=== PATIENT | female | born 1955 | race Caucasian/White ===

== ENCOUNTER → 2016-06-24 | Outpatient (CLI) | payer MEDICARE, OTHER ==
--- NOTE | 2016-06-25 11:10 | ECHOF ---
Referral Reason:Pulmonary HTN I27.89 MEASUREMENTS -------- HEIGHT: 165.1 cm WEIGHT: 80.7 kg BP: 108/78 RVIDd: 3.0 cm (< 3.3) IVSd: 1.0 cm (0.6 - 1.1) LVIDd: 3.8 cm (3.9 - 5.3) LVPWd: 0.8 cm (0.6 - 1.1) IVSs: 1.3 cm LVIDs: 2.5 cm LVPWs: 1.4 cm LA Diam: 2.6 cm (2.7 - 3.8) LAESV Index (A-L): 13.04 ml/m Ao Diam: 3.0 cm (2.0 - 3.7) AV Cusp: 1.8 cm (1.5 - 2.6) LA Diam: 2.7 cm (2.7 - 3.8) MV EXCURSION: 12.451 mm (> 18.000) MV EF SLOPE: 24 mm/s (70 - 150) EPSS: 0.5 cm MV E Brent: 0.42 m/s MV DecT: 265 ms MV A Brent: 0.58 m/s MV E/A Ratio: 0.71 AR PHT: 3143 ms RAP: 5.00 mmHg RVSP: 22.82 mmHg FINDINGS -------- Sinus rhythm with extra systolic beats. This was a technically good study. The left ventricular size is normal. Left ventricular wall thickness is normal. Overall left ventricular systolic function is normal with, an EF between 55 - 60 %. The right ventricle is normal in size. Normal LA size by volume 22+/-6 ml/m2. The right atrium is normal in size. Aortic valve is trileaflet and is mildly thickened. There is moderate aortic regurgitation. The mitral valve leaflets are mildly thickened. There is trace to mild mitral regurgitation. Trace tricuspid regurgitation present. Trace/mild (physiologic) pulmonic regurgitation. The aortic root size is normal. IVC Not well visulized. There is no pericardial effusion. CONCLUSIONS -------- 1. Sinus rhythm with extra systolic beats. 2. The aortic root size is normal. 3. IVC Not well visulized. 4. There is no pericardial effusion. 5. This was a technically good study. 6. Left ventricular wall thickness is normal. 7. Overall left ventricular systolic function is normal with, an EF between 55 - 60 %. 8. Normal LA size by volume 22+/-6 ml/m2. 9. Aortic valve is trileaflet and is mildly thickened. 10. The mitral valve leaflets are mildly thickened. 11. Trace tricuspid regurgitation present. 12. Trace/mild (physiologic) pulmonic regurgitation. QUALITY ASSURANCE LAB TECHNICIAN: Kiera Rodriguez RDCS
== END | disposition home or self-care (01) ==
LOC: RADECHMAIN 14:38
PROVIDERS: ATTEND Internal Medicine Pulmonary Disease
DX: I08.3 Combined rheumatic disorders of mitral, aortic and tricuspid valves (principal)
CPT/HCPCS: 93306

== ENCOUNTER → 2016-08-09 | Outpatient (CLI) | payer MEDICARE, OTHER ==
[2016-08-09 11:13] LABS: Basophils % (A) 1 %; CH 28.6; CHCM 31.9; Eosinophils # (A) 0.2 k/uL (0-0.7); Eosinophils % (A) 6 %; HCT 38.9 % (34.0-46.0); HDW 3.06; HGB 12.5 gm/dL (11.4-16.0); Hypochromasia Slight; Luc # (Auto) 0.17; Luc % (Auto) 5; Lymphocytes # (A) 1.2 k/uL (1.0-4.8); Lymphocytes % (A) 30 %; MCH 28.8 pg (25.0-35.0); MCHC 32.1 g/dL (31.0-37.0); Mean Platelet Volume 6.7; Monocytes # (A) 0.2 k/uL (0-1.0); Monocytes % (A) 5 %; Neutrophils # (A) 2.1 k/uL (1.3-7.7); Neutrophils % (A) 53 %; RBC 4.32 m/uL (3.80-5.40); RDW 15.3 % (11.5-15.5); WBC 3.9 k/uL (3.8-10.6)
[2016-08-09 11:15] LABS: Potassium 4.6 mmol/L (3.5-5.1)
[2016-08-09 11:16] LABS: Partial Thromboplastin Time 23.8 sec (22.0-30.0); Prothrombin Time 10.6 sec (9.0-12.0)
== END | disposition home or self-care (01) ==
LOC: LABPAT 10:23
PROVIDERS: ATTEND Orthopaedic Surgery
DX: Z01.810 Encounter for preprocedural cardiovascular examination (principal); Z01.812 Encounter for preprocedural laboratory examination; M23.91 Unspecified internal derangement of right knee
CPT/HCPCS: 80051; 85025; 85610; 85730

== ENCOUNTER 2016-08-20 08:36 | Day surgery (SDC) | payer MEDICARE, OTHER ==
[2016-08-13 15:23] VITALS: BMI 30.3
--- NOTE | 2016-08-19 11:31 | HP ---
DATE OF ADMISSION: CHIEF COMPLAINT: Right knee pain. HISTORY OF PRESENT ILLNESS: The patient is a 60-year-old female on permanent disability who presents after injuring her right knee on 08/07/2016. She fell on both knees in the hallway in front of her apartment building. She notes anterior medial pain along with giving way. She has tried injections and medications with only partial temporary relief. She had a previous arthroscopy in November of last year. PAST MEDICAL HISTORY: Significant for rheumatoid arthritis, depression, chronic low back pain. PAST SURGICAL HISTORY: Significant for tubal ligation, left and right knee arthroscopy, rotator cuff repair and tonsillectomy. CURRENT MEDICATIONS: 1. Lyrica. 2. Diazepam. 3. Methotrexate. 4. Procardia. 5. Percocet. 6. Cimzia. She has allergies to PENICILLIN with sensitivity to TYLENOL. FAMILY HISTORY: Significant for COPD. SOCIAL HISTORY: Negative for current tobacco or alcohol use. Sixteen-point review of systems otherwise reviewed and is noncontributory. On examination, the patient is approximately 5 feet 4 inches, 178 pounds of endomorphic habitus. HEENT exam is nonfocal. Neck is supple. She has painless passive motion of her right hip. Straight leg raise is negative. Active motion of the right knee -12 to 70 degrees of flexion. She has a moderate effusion. She is tender about the medial greater than lateral joint line along with the medial patellar facet. Collaterals are stable, Ele's negative, Montserrat's elicits medial pain. Her distal neurovascular exam appears to be intact in the right lower extremity. X-rays of the right knee obtained in the office show moderate medial and patellofemoral compartment narrowing. MRI report from 07/05/2016 shows medial meniscal fraying along with degenerative changes involving all 3 compartments. IMPRESSION: 1. Right knee internal derangement with possible recurrent medial meniscal tear. 2. Right knee rheumatoid arthritis/synovitis. RECOMMENDATIONS: I talked to the patient at length regarding her treatment options. At this point, she is having persistent pain and mechanical symptoms that limit her. At this point, she does not want to consider knee replacement. We will plan to proceed with arthroscopic evaluation with possible partial synovectomy and medial femoral chondrectomy. Risks and benefits were discussed at length in layman's terms.
[~2016-08-20 08:36] MED LIST: DEXAMETHASONE SOD PHOSPHATE 10 MG/ML 1 ML VIAL IV ONE; LACTATED RINGERS 1,000 ML IV SCH; MIDAZOLAM 2 MG/2 ML VIAL IV PRN; ONDANSETRON 4 MG/2 ML VIAL IVP ONE; SCOPOLAMINE 1.5MG/72HR PATCH TRANSDERM ONE; ceFAZolin 2 GM in SODIUM CHLORIDE 0.9% 100 ML IVPB ONE
[2016-08-20] MEDS ORDERED: LIDOCAINE 1% 20 ML VIAL (10MG/ML) FOR IV START INTRADERMA ONE (09:18)
[2016-08-20] MEDS ORDERED: LIDOCAINE 1% INJ 10MG/ML (20 ML MDV) ONE (10:15)
[2016-08-20] MEDS ORDERED: MIDAZOLAM 2 MG/2 ML VIAL ONE (10:15)
[2016-08-20] MEDS ORDERED: PROPOFOL 10 MG/ML 20 ML VIAL IV ONE (10:15)
[2016-08-20] MEDS ORDERED: fentaNYL (PF) 50 MCG/ML 2 ML AMP ONE (10:15)
--- NOTE | 2016-08-20 11:00 | P.OP ---
Date of Procedure: 08/20/16 Preoperative Diagnosis: Internal derangement right knee Postoperative Diagnosis: Right knee posterior medial meniscal tear/grade 3 chondral injury lateral tibial plateau/grade 3/4 chondral injury lateral patella facet/reactive synovitis Procedure(s) Performed: Right knee arthroscopic partial meniscectomy/medial femoral chondrectomy/ tibial chondrectomy/patellar chondroplasty/partial synovectomy of the lateral and patellofemoral compartments Implants: Anesthesia: GETA Surgeon: Jesus Ron Estimated Blood Loss (ml): 10 Pathology: none sent Condition: stable Disposition: PACU Indications for Procedure: The patient's a 60-year-old female who presents with progressive right knee pain and mechanical symptoms after a recent twisting injury. She tried conservative measures with persistence of symptoms that limited her. A discussion of the risks and benefits of operative intervention versus continued conservative measures was made with the patient. Operative options to include arthroscopic treatment versus arthroplasty were discussed. She is hesitant to consider arthroplasty at this point. Specific risks to include infection, neurovascular injury, development of blood clots, possible incomplete resolution of symptoms, possible worsening symptoms and need for subsequent procedures was discussed. Informed consent was obtained. Operative Findings: As below Description of Procedure: The patient was brought to the operating room, and after induction of general anesthesia examined the right knee. Collaterals were stable, Ele was negative, posterior drawer was negative. The right lower extending was prepped and draped in normal fashion. A superior lateral portal was made through a 3 mm skin incision superior and lateral to the patella. This was used for outflow. A moderate effusion was encountered. A lateral portal was made through a 5 mm vertical skin incision lateral to the patella tendon above the joint line. Diagnostic arthroscopy was performed. A medial portal was made through a similar incision medial to the patella tendon above the joint line. On inspection medial compartment, she is noted of longitudinal tear involving the posterior aspect the medial meniscus. This was debrided back to stable base with straight baskets. The edges were contoured. Moderate degenerative changes involving medial compartment were noted. A grade 3 chondral injury involving the distal medial portion of the medial femoral condyle was noted. There was a loose chondral flap debrided back to stable wrist motorized shaver. On inspection of the notch, the anterior cruciate ligament appeared to be intact. On inspection of the lateral compartment a grade 3 chondral injury involving the anterior medial portion of the tibial plateau was noted. A loose chondral flap was noted and debrided back to stable base with a motorized shaver. The lateral meniscus was stable and intact. Reactive synovitis involving the lateral and patellofemoral compartment was debrided with motorized shaver. On inspection patellofemoral articulation, a grade 3/4 chondral injury was noted involving the lateral patella facet. This measured 8 x 10 mm. The loose chondral flap edges were debrided with motorized shaver back to stable base. The gutters were clear debris. The knee was then thoroughly irrigated. The portals were closed with Steri-Strips. A sterile dressing was applied in addition to a compression stocking. The patient was awoken from general anesthesia and transferred to recovery room in good condition. Blood loss was estimated at 10 mL. No complications were incurred.
[2016-08-20 11:01] VITALS: TEMP 97.3
[2016-08-20] MEDS: HYDROmorphone 1 MG/ML 1 ML SYRINGE IVP PRN ×2 (11:08→11:15)
[2016-08-20 12:09] VITALS: RESP 16
[2016-08-20 12:33] VITALS: BP 112/70; PULSE 58
== END 2016-08-20 12:55 | disposition home or self-care (01) ==
LOC: OR 08:36
PROVIDERS: ATTEND Orthopaedic Surgery
DX: S83.241A Other tear of medial meniscus, current injury, right knee, initial encounter (principal); W19.XXXA Unspecified fall, initial encounter; Y92.038 Other place in apartment as the place of occurrence of the external cause; M65.861 Other synovitis and tenosynovitis, right lower leg; M23.91 Unspecified internal derangement of right knee; M06.9 Rheumatoid arthritis, unspecified; M25.461 Effusion, right knee; M17.11 Unilateral primary osteoarthritis, right knee; F32.9 Major depressive disorder, single episode, unspecified; I10 Essential (primary) hypertension; M79.7 Fibromyalgia; R94.31 Abnormal electrocardiogram [ECG] [EKG]; Z79.891 Long term (current) use of opiate analgesic; Z79.899 Other long term (current) drug therapy; Z88.0 Allergy status to penicillin
CPT/HCPCS: 29881; J2250; J1100; J0690; J2405; J2001; J3010; J1170; J2704

== ENCOUNTER 2016-12-25 10:20 | Inpatient (IN) | payer MEDICARE, OTHER ==
[2016-12-25] MEDS ORDERED: HEPARIN SODIUM,PORCINE 5,000 UNIT/ML 1 ML VIAL IV PRN (15:48)
[2016-12-25] MEDS ORDERED: HEPARIN SODIUM,PORCINE/D5W PMX 25,000 UNIT in DEXTROSE/WATER 1 500ML.BAG IV SCH (16:00)
[2016-12-25] MEDS: SODIUM CHLORIDE 0.9% 1,000 ML IV SCH (17:11)
[2016-12-25 17:23] LABS: Troponin I 1.34 ng/mL (0.000-0.034)
[2016-12-25] MEDS: NIFEdipine XL 30 MG TAB.ER.24 PO SCH (20:15)
[2016-12-25] MEDS: PREGABALIN 100 MG CAP PO SCH (20:15)
[2016-12-25] MEDS: ZOLPIDEM 10 MG TAB PO PRN (21:07)
[2016-12-25 22:36] LABS: Creatine Kinase MB 4.2 ng/mL (0.0-2.4)
[2016-12-25 22:37] LABS: Troponin I 1.2 ng/mL (0.000-0.034)
[2016-12-26] MEDS: MORPHINE SULFATE 2 MG/ML SYRINGE IVP PRN ×2 (00:19→07:55)
[2016-12-26] MEDS: SODIUM CHLORIDE 0.9% 1,000 ML IV SCH ×2 (00:20→15:29)
[2016-12-26 04:55] LABS: Basophils # (A) 0.1 k/uL (0-0.2); Basophils % (A) 1 %; CH 29.9; CHCM 32.2; Eosinophils # (A) 0.1 k/uL (0-0.7); Eosinophils % (A) 2 %; HCT 39.4 % (34.0-46.0); HDW 2.77; HGB 12.3 gm/dL (11.4-16.0); Luc # (Auto) 0.15; Luc % (Auto) 3; Lymphocytes % (A) 35 %; MCHC 31.2 g/dL (31.0-37.0); MCV 93.2 fL (80.0-100.0); Mean Platelet Volume 7.3; Monocytes # (A) 0.3 k/uL (0-1.0); Monocytes % (A) 5 %; Neutrophils # (A) 3.1 k/uL (1.3-7.7); Neutrophils % (A) 55 %; RBC 4.23 m/uL (3.80-5.40); RDW 15.5 % (11.5-15.5); WBC 5.7 k/uL (3.8-10.6); WBC (Perox) 5.96
[2016-12-26 05:11] LABS: Anion Gap 7 mmol/L; Blood Urea Nitrogen 12 mg/dL (7-17); Calcium 8.2 mg/dL (8.4-10.2); Carbon Dioxide 17 mmol/L (22-30); Chloride 115 mmol/L (98-107); Glucose 89 mg/dL (74-99); Non-African American GFR(MDRD) >60 (>60 ml/min/1.73 sqM); Potassium 3.7 mmol/L (3.5-5.1); Sodium 139 mmol/L (137-145)
[2016-12-26 05:49] LABS: Creatine Kinase MB 3.9 ng/mL (0.0-2.4)
[2016-12-26 05:50] LABS: Troponin I 0.83 ng/mL (0.000-0.034)
[2016-12-26] MEDS: NIFEdipine XL 30 MG TAB.ER.24 PO SCH (06:51)
[2016-12-26] MEDS: CLOPIDOGREL 75 MG TAB PO SCH (06:51)
[2016-12-26] MEDS: PREGABALIN 100 MG CAP PO SCH ×2 (06:56→21:48)
[2016-12-26] MEDS ORDERED: HYDROmorphone 1 MG/ML 1 ML SYRINGE IM PRN (07:51)
[2016-12-26] MEDS ORDERED: ALPRAZolam 0.25 MG TAB PO PRN (07:51)
[2016-12-26] MEDS ORDERED: LIDOCAINE 2% INJ 20 MG/ML (20 ML MDV) ONE (08:50)
[2016-12-26] MEDS ORDERED: ASPIRIN 325 MG TAB PO ONE (09:00)
[2016-12-26] MEDS ORDERED: diphenhydrAMINE 50 MG/ML 1 ML VIAL ONE (09:07)
[2016-12-26] MEDS ORDERED: MIDAZOLAM 2 MG/2 ML VIAL ONE (09:07)
[2016-12-26] MEDS ORDERED: MIDAZOLAM 2 MG/2 ML VIAL IV ONE (09:11)
[2016-12-26] MEDS ORDERED: IV FLUID CONTINUATION 450 ML IV ONE (09:11)
[2016-12-26] MEDS ORDERED: diphenhydrAMINE 50 MG/ML 1 ML VIAL IVP ONE (09:13)
[2016-12-26] MEDS ORDERED: LIDOCAINE 2% INJ 20 MG/ML SQ ONE (09:16)
[2016-12-26] MEDS ORDERED: IOHEXOL 350 MG/ML 125ML BOTTLE INJ ONE (09:37)
[2016-12-26] MEDS ORDERED: ISOSORBIDE MONONITRATE ER 30 MG TAB.ER.24H PO SCH (10:00)
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
[2016-12-26] MEDS: LISINOPRIL 2.5 MG TAB PO SCH (15:19)
[2016-12-26] MEDS ORDERED: ACETAMINOPHEN TAB 325 MG TAB PO PRN (17:46)
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
[2016-12-26] MEDS: ATORVASTATIN 20 MG TAB PO SCH (21:48)
[2016-12-26] MEDS: METOPROLOL TARTRATE 25 MG TAB PO SCH (21:48)
[2016-12-27 06:53] LABS: Basophils % (A) 1 %; CH 29.1; CHCM 31.4; Eosinophils # (A) 0.1 k/uL (0-0.7); Eosinophils % (A) 2 %; HCT 38.7 % (34.0-46.0); HDW 2.83; HGB 12.2 gm/dL (11.4-16.0); Hypochromasia Slight; Luc # (Auto) 0.14; Luc % (Auto) 3; Lymphocytes # (A) 1.7 k/uL (1.0-4.8); Lymphocytes % (A) 32 %; MCH 29.5 pg (25.0-35.0); MCHC 31.7 g/dL (31.0-37.0); MCV 93.1 fL (80.0-100.0); Mean Platelet Volume 6.7; Monocytes # (A) 0.2 k/uL (0-1.0); Monocytes % (A) 5 %; Neutrophils # (A) 3.1 k/uL (1.3-7.7); Neutrophils % (A) 59 %; RBC 4.15 m/uL (3.80-5.40); WBC 5.2 k/uL (3.8-10.6); WBC (Perox) 5.47
[2016-12-27 09:53] LABS: Anion Gap 6 mmol/L; Blood Urea Nitrogen 9 mg/dL (7-17); Calcium 8.6 mg/dL (8.4-10.2); Carbon Dioxide 23 mmol/L (22-30); Chloride 113 mmol/L (98-107); Glucose 74 mg/dL (74-99); Non-African American GFR(MDRD) >60 (>60 ml/min/1.73 sqM); Sodium 142 mmol/L (137-145)
[2016-12-27] MEDS: PREGABALIN 100 MG CAP PO SCH ×2 (10:21→20:05)
[2016-12-27] MEDS: CLOPIDOGREL 75 MG TAB PO SCH (10:21)
[2016-12-27] MEDS: METOPROLOL TARTRATE 25 MG TAB PO SCH (11:28)
[2016-12-27] MEDS: LISINOPRIL 2.5 MG TAB PO SCH (11:45)
[2016-12-27] MEDS: METOPROLOL TARTRATE 12.5 MG TAB PO SCH ×2 (12:07→20:05)
--- NOTE | 2016-12-27 13:06 | P.PN ---
Subjective Principal diagnosis: NSTEMI This is a pleasant 61-year-old female who presented presented to [facility] emergency department with complaints of chest discomfort. Her troponins came in to be elevated at around 5. She underwent an echocardiogram that showed extensive apical hypokinesis with moderate LV systolic dysfunction. He was advised to undergo cardiac catheterization and was transferred here to [facility] for that. Cardiac catheterization showed plaque rupture with spontaneous dissection within the proximal LAD that seemed to have healed well with very good distal flow at that time she was advised medical management. He was initiated on lisinopril 2.5 mg by mouth daily, metoprolol titrate 25 mg by mouth twice a day and Imdur. Her blood pressure has been running on the low side which is normal for her according to the patient. Upon examination, patient is resting comfortably in bed. She denies complaints of chest discomfort or shortness of breath. Objective - Vital Signs Vital signs: Vital Signs Temp 96.3 F L 12/27/16 11:58 Pulse 68 12/27/16 11:58 Resp 18 12/27/16 11:58 BP 94/53 12/27/16 11:58 Pulse Ox 99 12/27/16 11:58 Intake & Output 12/26/16 12/27/16 12/27/16 18:59 06:59 18:59 Intake Total 1385.2 375 840 Balance 1385.2 375 840 Weight 80.5 kg Intake: IV 50 375 600 Sodium Chloride 0.9% 1, 375 600 000 ml @ 75 mls/hr IV . [id number] [facility] Rx#:[id number] Intake, IV Titration 1135.2 Amount Heparin Sodium,Porcine/ 235.2 D5w Pmx 25,000 unit In Dextrose/Water 1 500ml. bag @ 12 UNITS/KG/HR 19. 65 mls/hr IV .Q24H [facility] Rx #:[id number] Sodium Chloride 0.9% 1, 900 000 ml @ 75 mls/hr IV . [id number] [facility] Rx#:[id number] Oral 200 240 Other: Voiding Method Toilet # Voids 1 1 - Exam PHYSICAL EXAMINATION: HEENT: Head is atraumatic, normocephalic. Pupils equal, round. Neck is supple. There is no elevated jugular venous pressure. HEART EXAMINATION: Heart sounds regular, S1 and S2 normal. No murmur or gallop heard. CHEST EXAMINATION: Lungs are clear to auscultation and precussion. No chest wall tenderness is noted on palpation or with deep breathing. ABDOMEN: Soft, nontender. Bowel sounds are heard. No organomegaly noted. EXTREMITIES: 2+ peripheral pulses with no evidence of peripheral edema and no calf tenderness noted. Right groin puncture site soft without ecchymosis or hematoma. NEUROLOGIC patient is awake, alert and oriented x3. . - Labs CBC & Chem 7: 12/27/16 05:45 12/27/16 05:45 Labs: Abnormal Lab Results - Last 24 Hours (Table) 12/27/16 Range/Units 05:45 Chloride 113 H (98-107) mmol/L Assessment and Plan Plan: Assessment and plan #1 non-ST elevated myocardial infarction with evidence of plaque rupture and spontaneous dissection within the proximal LAD that seemed well-healed #2 rheumatoid arthritis #3 fibromyalgia From cardiology's perspective, we will adjust medications due to hypotension. Stop Procardia and Imdur, decrease metoprolol to 12.5 mg by mouth twice a day and continue lisinopril 2.5 mg by mouth daily. We'll monitor the patient overnight and provide further recommendations accordingly. SPANISH LITERATURE PROFESSOR note has been reviewed, I agree with a documented findings and plan of care. Patient was seen and examined.
[2016-12-27 14:52] VITALS: BMI 30.4
[2016-12-27] MEDS: SODIUM CHLORIDE 0.9% 1,000 ML IV SCH ×2 (20:00→21:20)
[2016-12-27] MEDS: ATORVASTATIN 20 MG TAB PO SCH (20:05)
[2016-12-27] MEDS: ZOLPIDEM 10 MG TAB PO PRN (21:23)
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
[2016-12-28 05:55] LABS: Anisocytosis Slight; Basophils % (A) 1 %; CH 29.8; CHCM 32.6; Eosinophils # (A) 0.1 k/uL (0-0.7); Eosinophils % (A) 2 %; HDW 2.84; HGB 12.4 gm/dL (11.4-16.0); Luc # (Auto) 0.13; Luc % (Auto) 3; Lymphocytes # (A) 1.4 k/uL (1.0-4.8); Lymphocytes % (A) 31 %; MCHC 32.6 g/dL (31.0-37.0); Mean Platelet Volume 7.8; Monocytes # (A) 0.3 k/uL (0-1.0); Monocytes % (A) 6 %; Neutrophils # (A) 2.6 k/uL (1.3-7.7); Neutrophils % (A) 57 %; RBC 4.13 m/uL (3.80-5.40); RDW 16.2 % (11.5-15.5); WBC 4.5 k/uL (3.8-10.6); WBC (Perox) 4.79
[2016-12-28] MEDS: CLOPIDOGREL 75 MG TAB PO SCH (08:17)
[2016-12-28] MEDS: METOPROLOL TARTRATE 12.5 MG TAB PO SCH (08:17)
[2016-12-28] MEDS: PREGABALIN 100 MG CAP PO SCH (08:17)
[2016-12-28] MEDS: LISINOPRIL 2.5 MG TAB PO SCH (08:17)
[2016-12-28 11:18] VITALS: BP 102/61; PULSE 57; RESP 18; TEMP 97
--- NOTE | 2016-12-28 13:12 | P.PN ---
Subjective Principal diagnosis: NSTEMI This is a pleasant 61-year-old female who presented presented to [facility] emergency department with complaints of chest discomfort. Her troponins came in to be elevated at around 5. She underwent an echocardiogram that showed extensive apical hypokinesis with moderate LV systolic dysfunction. He was advised to undergo cardiac catheterization and was transferred here to [facility] for that. Cardiac catheterization showed plaque rupture with spontaneous dissection within the proximal LAD that seemed to have healed well with very good distal flow at that time she was advised medical management. She is on lisinopril 2.5 mg by mouth daily and metoprolol 12.5 mg by mouth twice a day. She is tolerating this well.. Her blood pressure has been running on the low side but is stable and is normal for her according to the patient. Upon examination, patient is resting comfortably in bed. She denies complaints of chest discomfort or shortness of breath. Objective - Vital Signs Vital signs: Vital Signs Temp 97.0 F L 12/28/16 11:17 Pulse 57 L 12/28/16 11:17 Resp 18 12/28/16 11:17 BP 102/61 12/28/16 11:17 Pulse Ox 97 12/28/16 11:17 Intake & Output 12/27/16 12/28/16 12/28/16 18:59 06:59 18:59 Intake Total 1080 360 Balance 1080 360 Weight 80.5 kg 79.6 kg Intake: IV 600 Sodium Chloride 0.9% 1, 600 000 ml @ 75 mls/hr IV . [id number] [facility] Rx#:[id number] Oral 480 360 Other: Voiding Method Toilet # Voids 1 1 1 # Bowel Movements 0 - Exam PHYSICAL EXAMINATION: HEENT: Head is atraumatic, normocephalic. Pupils equal, round. Neck is supple. There is no elevated jugular venous pressure. HEART EXAMINATION: Heart sounds regular, S1 and S2 normal. No murmur or gallop heard. CHEST EXAMINATION: Lungs are clear to auscultation and precussion. No chest wall tenderness is noted on palpation or with deep breathing. ABDOMEN: Soft, nontender. Bowel sounds are heard. No organomegaly noted. EXTREMITIES: 2+ peripheral pulses with no evidence of peripheral edema and no calf tenderness noted. Right groin puncture site soft without ecchymosis or hematoma. NEUROLOGIC patient is awake, alert and oriented x3. . - Labs CBC & Chem 7: 12/28/16 05:44 12/27/16 05:45 Labs: Abnormal Lab Results - Last 24 Hours (Table) 12/28/16 Range/Units 05:44 RDW 16.2 H (11.5-15.5) % Assessment and Plan Plan: Assessment and plan #1 non-ST elevated myocardial infarction with evidence of plaque rupture and spontaneous dissection within the proximal LAD that seemed well-healed #2 rheumatoid arthritis #3 fibromyalgia From cardiology's perspective, continue lisinopril and metoprolol. She will follow-up in the office with Dr. Suarez. Likely be scheduled for repeat echocardiogram to reassess LV function in about 3 months. DEPARTMENT CLERK note has been reviewed, I agree with a documented findings and plan of care. Patient was seen and examined.
--- NOTE | 2016-12-28 13:45 | P.PN ---
Subjective No overnight events, patient denied any chest pain at this point of time. Patient is otherwise clinically doing well. Patient ejection fraction from [facility] was apparently 20-25% was initially thought to have stress- induced cardiomyopathy although patient does have some wretched of plaque in LAD which is probably contributing to her echo findings of apical ballooning probably. Patient was started on lisinopril and cardiology wanted to monitor the patient. Calcium channel lorraine was discontinued. Patient denied any chest pain, shortness of breath, denied any fever, chills, dysuria. Objective - Vital Signs Vital signs: Vital Signs Temp 97.0 F L 12/28/16 11:17 Pulse 57 L 12/28/16 11:17 Resp 18 12/28/16 11:17 BP 102/61 12/28/16 11:17 Pulse Ox 97 12/28/16 11:17 Intake & Output 12/27/16 12/28/16 12/28/16 18:59 06:59 18:59 Intake Total 1080 360 Balance 1080 360 Weight 80.5 kg 79.6 kg Intake: IV 600 Sodium Chloride 0.9% 1, 600 000 ml @ 75 mls/hr IV . [id number] [facility] Rx#:[id number] Oral 480 360 Other: Voiding Method Toilet # Voids 1 1 1 # Bowel Movements 0 - Exam PHYSICAL EXAMINATION: GENERAL: The patient is alert and oriented x3, not in any acute distress. Well developed, well nourished. HEENT: Pupils are round and equally reacting to light. EOMI. No scleral icterus. No conjunctival pallor. Normocephalic, atraumatic. No pharyngeal erythema. No thyromegaly. CARDIOVASCULAR: S1 and S2 present. No murmurs, rubs, or gallops. PULMONARY: Chest is clear to auscultation, no wheezing or crackles. ABDOMEN: Soft, nontender, nondistended, normoactive bowel sounds. No palpable organomegaly. MUSCULOSKELETAL: No joint swelling or deformity. EXTREMITIES: No cyanosis, clubbing, or pedal edema. NEUROLOGICAL: Gross neurological examination did not reveal any focal deficits. SKIN: No rashes. - Labs CBC & Chem 7: 12/28/16 05:44 12/27/16 05:45 Labs: Abnormal Lab Results - Last 24 Hours (Table) 12/28/16 Range/Units 05:44 RDW 16.2 H (11.5-15.5) % Assessment and Plan Plan: Acute non-ST elevated WI with Elevated troponin Plaque rupture with spontaneous dissection within the proximal LAD healed well with good distal flow Congestive heart failure systolic dysfunction, most probably acute systolic dysfunction probably due to acute cardiomyopathy, patient is not volume overloaded, patient's blood pressure is low because of severe cardiomyopathy patient will be monitored one more night as recommended by cardiology. Arthritis
--- NOTE | 2016-12-28 15:11 | P.DS ---
Providers Date of admission: 12/25/16 15:45 Attending physician: Paulino Wiley Consults: 12/25/16 15:49 Consult Physician Routine Consulting Provider: Jose Pitts Consult Reason/Comments: NSTEMI Do you want consulting provider notified?: Already Contacted Primary care physician: Megan Sanchez [facility] Course: Patient is requesting to be discharged patient will be discharged today to follow with cardiology and primary care physician as an outpatient patient was asked to come back if she has recurrence of these episodes of lightheadedness after calling primary care physician. Please refer to my progress note from today for further details Plan - Discharge Summary New Discharge Prescriptions: New Atorvastatin [Lipitor] 20 mg PO HS #30 tab Clopidogrel [Plavix] 75 mg PO DAILY #30 tab Lisinopril [Zestril] 2.5 mg PO DAILY #30 tab Metoprolol Tartrate [Lopressor] 12.5 mg PO BID #30 tab Continue Pregabalin [Lyrica] 100 mg PO BID Omeprazole 20 mg PO BID Methotrexate Sodium (Pf) [Methotrexate 50 mg/2 ml Vial] 50 mg IM SA Zolpidem [Ambien] 10 mg PO HS PRN PRN Reason: Insomnia oxyCODONE HCL 10 mg PO QID PRN PRN Reason: Pain Orencia(Unknown Dose) 1 dose IVPB Q30D Discontinued NIFEdipine [NIFEdipine ER] 30 mg PO BID Discharge Medication List Omeprazole 20 mg PO BID 11/05/15 [History] Pregabalin [Lyrica] 100 mg PO BID 11/05/15 [History] Methotrexate Sodium (Pf) [Methotrexate 50 mg/2 ml Vial] 50 mg IM SA 11/07/15 [ History] Zolpidem [Ambien] 10 mg PO HS PRN 08/13/16 [History] Orencia(Unknown Dose) 1 dose IVPB Q30D 12/25/16 [History] oxyCODONE HCL 10 mg PO QID PRN 12/25/16 [History] Atorvastatin [Lipitor] 20 mg PO HS #30 tab 12/28/16 [Rx] Clopidogrel [Plavix] 75 mg PO DAILY #30 tab 12/28/16 [Rx] Lisinopril [Zestril] 2.5 mg PO DAILY #30 tab 12/28/16 [Rx] Metoprolol Tartrate [Lopressor] 12.5 mg PO BID #30 tab 12/28/16 [Rx] Follow up Appointment(s)/Referral(s): Jesse Suarez MD [STAFF PHYSICIAN] - 01/05/17 1:00 pm Jenny Guzman MD [Primary Care Provider] - 1 Week Patient Instructions/Handouts: Myocardial Infarction (DC), Heart Healthy Diet ( DC), Acute Coronary Syndrome (DC), Cardiac Rehabilitation (DC) Discharge Disposition: HOME SELF-CARE
== END 2016-12-28 16:28 | disposition home or self-care (01) | DRG 280 ==
LOC: 6SEL 15:45
PROVIDERS: ADMIT Internal Medicine; ATTEND Internal Medicine
PROC: B2111ZZ Fluoroscopy of Multiple Coronary Arteries using Low Osmolar Contrast (ICD-10-PCS; 2016-12-26)
PROC: 4A023N7 Measurement of Cardiac Sampling and Pressure, Left Heart, Percutaneous Approach (ICD-10-PCS; principal; 2016-12-26 09:01)
DX: I21.4 Non-ST elevation (NSTEMI) myocardial infarction (principal); I50.21 Acute systolic (congestive) heart failure; I42.9 Cardiomyopathy, unspecified; I95.9 Hypotension, unspecified; J70.5 Respiratory conditions due to smoke inhalation; I25.10 Atherosclerotic heart disease of native coronary artery without angina pectoris; F32.9 Major depressive disorder, single episode, unspecified; F41.9 Anxiety disorder, unspecified; K21.9 Gastro-esophageal reflux disease without esophagitis; M06.9 Rheumatoid arthritis, unspecified; M19.90 Unspecified osteoarthritis, unspecified site; M79.7 Fibromyalgia; T59.811A Toxic effect of smoke, accidental (unintentional), initial encounter; I83.90 Asymptomatic varicose veins of unspecified lower extremity; Z79.899 Other long term (current) drug therapy; Z88.0 Allergy status to penicillin
CPT/HCPCS: 80048; 82550; 82553; 84484; 85025; 85730; 93458

== ENCOUNTER → 2016-12-30 | Outpatient (CLI) | payer MEDICARE, OTHER ==
--- NOTE | 2016-12-30 10:46 | MR ---
EXAMINATION TYPE: MR brain wo/w con DATE OF EXAM: 12/30/2016 10:35 AM COMPARISON: NONE HISTORY: headaches, lt periorbital rodriguez CONTRAST: Patient received 8 mL intravenous Gadavist gadolinium contrast. Multiplanar and multispin-echo imaging of the brain was performed . Pre and post contrast enhanced i mages are obtained. The ventricles, basal cisterns and sulci overlying the cerebral convexities are mildly enlarged. There is evidence of mild periventricular white matter ischemic demyelination. Remote deep white matter insults are also noted. No acute edema is seen on diffusion weighted imaging. There is no evidence for midline shift or mass effect. Acute intracranial hemorrhage or extra-axial collection is not evident. No enhancing lesions are seen. The paranasal sinuses and mastoid air cells are well-aerated. IMPRESSION: Age-related atrophic and chronic small vessel ischemic change. No acute intracranial process at this time. No enhancing lesions are seen. EXAMINATION TYPE: MR brain wo/w con DATE OF EXAM: 12/30/2016 10:35 AM COMPARISON: NONE HISTORY: headaches, lt periorbital rodriguez CONTRAST: Patient received 8 mL intravenous Gadavist gadolinium contrast. Multiplanar MultiSpin echo imaging of the pituitary fossa was performed. Unenhanced followed by cont rast enhanced images are submitted. The unenhanced portion of the study fails to demonstrate evidence for hyperintense pituitary lesion. The pituitary gland is of normal size and measures 10 x 6 mm. There is a partially empty sella. Fol lowing contrast administration there is no evidence for filling defect to suggest microadenoma. Pitu itary stalk is midline. Suprasellar cistern is unremarkable without evidence for mass. Optic chiasm has a normal appearance. Cavernous sinus including the carotid vessels appear to be within normal l imits. IMPRESSION: 1. No evidence for pituitary micro or macroadenoma.
== END | disposition home or self-care (01) ==
LOC: RADMRIMAIN 09:24
PROVIDERS: ATTEND Otolaryngology
DX: G31.9 Degenerative disease of nervous system, unspecified (principal); I67.82 Cerebral ischemia; R43.2 Parageusia
CPT/HCPCS: 70553; A9581

== ENCOUNTER → 2018-03-03 | Outpatient (CLI) | payer MEDICARE, OTHER ==
--- NOTE | 2018-03-03 10:18 | MR ---
EXAMINATION TYPE: MR hip LT wo con DATE OF EXAM: 03/03/2018 COMPARISON: Pelvic x-ray October 24, 2013 HISTORY: Left hip pain Standard multiplanar, multisequence MRI departmental protocol Multiplanar, multisequence images of the pelvis focus and left hip were acquired. Diffusion weighted imaging was performed. FINDINGS: There is mild to moderate axial joint space loss in both hips with mild spurring. There are symmetric small hip joint effusions. In the left hip there is heterogeneous edema involving the supe rior acetabulum and adjacent lateral muscle which shows some asymmetric atrophy. No suspicious cortic al destruction is identified. Remainder surrounding muscle bulk is maintained. Sagittal images show s ubchondral cystic change involving anterior superior acetabulum. Labrum appears grossly intact given limitation of nonarthrogram study. Femoral head shape is maintained. Some heterogeneous increased T2 signal involving anterior aspect femoral head is noted best on axial images 12 and 13. Bone marrow si gnal intensity in the proximal left femur is otherwise felt within normal limits. No suspicious fluid signal seen at level of greater or lesser trochanters bilaterally. No groin hernia is seen. No groin adenopathy is noted. Visualized portion of bladder is within normal limits. Uterus is likely surgically absent. Some diverticula are seen in the sigmoid colon. There is small to moderate-sized fat-containing ventral wall possible umbilical hernia axial image 26. IMPRESSION: Mild to moderate degenerative changes in both hip joints, likely source of pain is asymmetric osseous edema involving the superior anterior aspect of the acetabulum and adjacent lateral muscle which kunal ws asymmetric atrophy, mild involvement in the anterior aspect of left femoral head is noted.
== END | disposition home or self-care (01) ==
LOC: RADMRIMAIN 08:10
PROVIDERS: ATTEND Physical Medicine & Rehabilitation
DX: M16.0 Bilateral primary osteoarthritis of hip (principal); M62.552 Muscle wasting and atrophy, not elsewhere classified, left thigh

== ENCOUNTER → 2018-04-18 | Outpatient (CLI) | payer MEDICARE, OTHER | END | disposition home or self-care (01) | LOC: LABPAT 14:31 | PROVIDERS: ATTEND Orthopaedic Surgery | DX: Z01.818 Encounter for other preprocedural examination (principal); Z01.812 Encounter for preprocedural laboratory examination; M16.12 Unilateral primary osteoarthritis, left hip; I10 Essential (primary) hypertension | CPT/HCPCS: 87070; 93005 ==

== ENCOUNTER → 2018-04-20 | Outpatient (CLI) | payer MEDICARE, OTHER ==
[2018-04-20 13:38] LABS: Basophils % (A) 1 %; Eosinophils # (A) 0.1 k/uL (0-0.7); Eosinophils % (A) 2 %; HGB 13.8 gm/dL (11.4-16.0); Lymphocytes # (A) 1.6 k/uL (1.0-4.8); Lymphocytes % (A) 30 %; MCH 30.3 pg (25.0-35.0); MCHC 33.7 g/dL (31.0-37.0); Mean Platelet Volume 7.1; Monocytes # (A) 0.2 k/uL (0-1.0); Monocytes % (A) 4 %; Neutrophils # (A) 3.4 k/uL (1.3-7.7); Neutrophils % (A) 61 %; Platelet Count 258 k/uL (150-450); RBC 4.56 m/uL (3.80-5.40); RDW 14.3 % (11.5-15.5); WBC 5.5 k/uL (3.8-10.6)
[2018-04-20 13:50] LABS: INR 0.9 (<1.2); Partial Thromboplastin Time 22.8 sec (22.0-30.0); Prothrombin Time 9.7 sec (9.0-12.0)
[2018-04-20 13:52] LABS: Potassium 4.8 mmol/L (3.5-5.1)
== END | disposition home or self-care (01) ==
LOC: LABPAT 12:53
PROVIDERS: ATTEND Orthopaedic Surgery
DX: Z01.812 Encounter for preprocedural laboratory examination (principal); M16.12 Unilateral primary osteoarthritis, left hip
CPT/HCPCS: 36415; 80051; 85025; 85610; 85730

== ENCOUNTER 2018-04-25 05:56 | Inpatient (IN) | payer MEDICARE, OTHER ==
[2018-04-18 11:25] VITALS: BMI 28.3
--- NOTE | 2018-04-24 09:12 | HP ---
HISTORY AND PHYSICAL CHIEF COMPLAINT: Left hip pain. HISTORY OF PRESENT ILLNESS: The patient is a 62-year-old female on permanent disability who presents with progressive left hip pain worsening over the past 3-4 months. She notes it is worse with weightbearing activities. She has been using a walker. She takes OxyContin 4 times daily. She notes the pain limits her normal function and activities. PAST MEDICAL HISTORY: Significant for rheumatoid arthritis, depression, migraines, possible lupus, chronic low back pain. She has a history of heart disease with a previous myocardial infarction. PAST SURGICAL HISTORY: Significant for tubal ligation, left knee arthroscopy, rotator cuff repair, and tonsillectomy. CURRENT MEDICATIONS: 1. Lipitor. 2. Lisinopril. 3. Lyrica. 4. Metoprolol. 5. Oxycodone. 6. Plavix. 7. Prilosec. 8. Trazodone. 16 POINT REVIEW OF SYSTEMS: Otherwise reviewed and is noncontributory. FAMILY HISTORY: Significant for COPD. SOCIAL HISTORY: Negative for current tobacco or alcohol use. PHYSICAL EXAMINATION: On examination, the patient is approximately 5 foot 4, 180 pounds of mesomorphic habitus. HEENT exam is nonfocal. Neck is supple. Passive motion left hip, flexion 75 degrees, external rotation with hip flex 30 degrees, internal rotation 0 degrees with pain. She has about a 10 degree flexion contracture. She has approximately 0.5 cm shortening left lower extremity compared to the right. She has an antalgic gait pattern. She does have limited left lumbar spine motion with some tender tenderness over the lower lumbar spine as well. Her distal neurovascular otherwise appears to be intact in the left lower extremity. AP and lateral views of the left hip obtained in the office show moderate joint space narrowing along with questionable lytic area involving femoral head. MRI report left hip shows some moderate joint space narrowing along with increased signal of the femoral head. IMPRESSION: 1. Left hip osteoarthrosis. 2. History of rheumatoid arthritis. 3. 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 RECOMMENDATIONS: I talked to the patient at length regarding her condition and treatment options. At this point, she is quite symptomatic and opts to proceed with surgery. We will plan to proceed with left total hip arthroplasty utilizing a direct anterior approach. We will likely reinstitute her Plavix postoperatively. Risks and benefits were discussed at length in layman's terms. MMODL / IJN: [id number] /
[~2018-04-25 05:56] MED LIST changes: +ACETAMINOPHEN TAB 500 MG TAB PO ONE; -DEXAMETHASONE SOD PHOSPHATE 10 MG/ML 1 ML VIAL IV ONE; -LACTATED RINGERS 1,000 ML IV SCH; +MELOXICAM 7.5 MG TAB PO ONE; -MIDAZOLAM 2 MG/2 ML VIAL IV PRN; -ONDANSETRON 4 MG/2 ML VIAL IVP ONE; -SCOPOLAMINE 1.5MG/72HR PATCH TRANSDERM ONE; +TRANEXAMIC ACID 1,000 MG in SODIUM CHLORIDE 0.9% 50 ML IVPB ONE; -ceFAZolin 2 GM in SODIUM CHLORIDE 0.9% 100 ML IVPB ONE; +ceFAZolin IN SWFI 2 GM/20 ML SYRINGE IVP ONE
[2018-04-25] MEDS ORDERED: ONDANSETRON 4 MG/2 ML VIAL IVP ONE ×2 (06:24→06:39)
[2018-04-25] MEDS ORDERED: SCOPOLAMINE 1.5MG/72HR PATCH TRANSDERM ONE (06:24)
[2018-04-25] MEDS ORDERED: DEXAMETHASONE SOD PHOSPHATE 10 MG/ML 1 ML VIAL IV ONE (06:24)
[2018-04-25] MEDS ORDERED: LIDOCAINE 1% 20 ML VIAL (10MG/ML) FOR IV START INTRADERMA PRN (06:24)
[2018-04-25] MEDS ORDERED: LIDOCAINE 1% 20 ML VIAL (10MG/ML) FOR IV START INTRADERMA ONE (06:38)
[2018-04-25] MEDS: LACTATED RINGERS 1,000 ML IV SCH (06:38)
[2018-04-25] MEDS ORDERED: DEXAMETHASONE SOD PHOS (MDV) 100 MG/10 ML VIAL IVP ONE (06:39)
[2018-04-25] MEDS ORDERED: WATER FOR INJECTION, STERILE 10 ML VIAL IV ONE (06:55)
[2018-04-25] MEDS ORDERED: fentaNYL (PF) 50 MCG/ML 2 ML AMP ONE (06:55)
[2018-04-25] MEDS ORDERED: TRANEXAMIC ACID 1,000 MG/10 ML VIAL ONE (06:55)
[2018-04-25] MEDS ORDERED: HEPARIN SODIUM,PORCINE 10,000 UNIT/ML 1 ML VIAL ONE (06:55)
[2018-04-25] MEDS ORDERED: SODIUM CHLORIDE 0.9% 100 ML BAG ONE (06:55)
[2018-04-25] MEDS ORDERED: PHENYLEPHRINE-0.9% NACL SYG 1 MG/10 ML SYRINGE ONE (06:55)
[2018-04-25] MEDS ORDERED: PROPOFOL 10 MG/ML 20 ML VIAL IV ONE (06:55)
[2018-04-25] MEDS ORDERED: LACTATED RINGERS 1,000 ML BAG IV ONE (06:55)
[2018-04-25] MEDS ORDERED: LIDOCAINE 1% INJ 10MG/ML (20 ML MDV) ONE (06:55)
[2018-04-25] MEDS ORDERED: ePHEDrine SULFATE/0.9% NACL/PF 50 MG/5 ML SYRINGE IV ONE (06:55)
[2018-04-25] MEDS ORDERED: MIDAZOLAM 2 MG/2 ML VIAL ONE (06:55)
[2018-04-25] MEDS ORDERED: ceFAZolin 3,000 MG in SODIUM CHLORIDE 0.9% IRRIGATIO 3,000 ML IRRIGATION ONE (07:37)
[2018-04-25] MEDS ORDERED: ACETAMINOPHEN TAB 325 MG TAB PO PRN (08:48)
[2018-04-25] MEDS ORDERED: MAGNESIUM HYDROXIDE 2,400 MG/10 ML CUP PO PRN (08:48)
[2018-04-25] MEDS ORDERED: ONDANSETRON 4 MG/2 ML VIAL IVP PRN (08:48)
[2018-04-25] MEDS ORDERED: HYDROmorphone 1 MG/ML 1 ML SYRINGE IVP PRN (08:48)
[2018-04-25] MEDS ORDERED: NALOXONE 0.4 MG/ML 1 ML VIAL IV PRN (08:48)
[2018-04-25] MEDS ORDERED: hydrOXYzine PAMOATE 25 MG CAP PO PRN (08:48)
[2018-04-25] MEDS ORDERED: LACTATED RINGERS 1,000 ML IV ONE (08:50)
--- NOTE | 2018-04-25 09:14 | P.OP ---
Date of Procedure: 04/25/18 Preoperative Diagnosis: Left hip osteoarthrosissymptomatic Postoperative Diagnosis: Same Procedure(s) Performed: Left total hip arthroplastypress-fitanterior approach Implants: Depuy Corail size 12 press-fit standard femoral stem, 32 mm +5 cobalt chrome femoral head, 52 mm Hydro acetabular shell with neutral polyethylene liner. Anesthesia: spinal Surgeon: Jesus Ron Crystal Lapper #1: Salomon Celestin Estimated Blood Loss (ml): 200 Pathology: other (Femoral head) Condition: stable Disposition: PACU Indications for Procedure: Patient is a 62-year-old female who presents with progressive left hip pain secondary to osteoarthrosis and rheumatoid arthritis despite conservative measures. A discussion of the risks and benefits of operative intervention versus continued conservative measures was made with patient. She opted to proceed with surgery. Operative risks to include infection, neurovascular injury, development of blood clots, possible fracture, possible leg length discrepancy, possible instability and need for subsequent procedures was discussed. Informed consent was obtained. Operative Findings: As below Description of Procedure: The patient was brought to the operating room, and after induction of spinal anesthesia was placed supine on the Rhonda table. Positioning was checked with fluoroscopy. The left hip was then prepped and draped in a normal fashion. A 12 cm incision was then made starting 2 fingerbreadths distal and 3 finger breaths posterior to the ASIS in line with the proximal femur. The skin was incised sharply. Subcutaneous tissues were divided sharply. Electrocautery was used for hemostasis. The fascia was split in line with skin incision. The interval between the sartorius and tensor fascia leanan was then bluntly developed. The posterior fascia was opened with electrocautery. The lateral circumflex vessels were identified and cauterized prior to sectioning. A retractor was placed along the superior femoral neck as well as the anterior acetabular rim. A wide capsulotomy was performed. The neck cut was then made at a 45 angle to the shaft approximately 1 1/2 cm above the level of the lesser trochanter. The head was extracted. Attention was then paid towards preparing the acetabular. Anterior and posterior retractors were placed. The remaining capsular labral tissue sharply debrided clearly defining the acetabular margins. I began reaming with a 43 mm reamer taking care to initially medialize then reaming at 45 of abduction and 20 of anteversion. Sequential reaming is performed up to 51 mm. A trial 52 mm acetabular shell was inserted in the same orientation and was fully seated. There was good rim fit and stability. Positioning was checked with fluoroscopy. The final D2 mm acetabular shell was inserted again at 45 of abduction and 20 of anteversion. This was fully seated. There was good rim fit and stability. Again fluoroscopy was used to check the adequacy of placement. A neutral polyethylene liner was gently impacted. Care was taken to avoid any soft tissue interposition. Pulsatile lavage was utilized. Attention was then paid towards preparing the proximal femur. The central region was cleared of soft tissue. A canal finder was used to find the femoral canal. Sequential broaching was performed up to size 12 taking care to lateralize proximally. A calcar mill was used to fashion the medial calcar. There was good rotational stability. A standard neck along with a 32 mm +5 head was placed. The hip was gently reduced. Fluoroscopy was used to check the adequacy of positioning along with leg lengths. I felt both were good. The hip was gently dislocated. The trial components were removed. The final size 12 collared standard press- fit femoral stem was inserted parallel to the posterior cortex. This was fully seated and there was good rotational stability. A 32 mm +5 head was placed. This was gently impacted. The hip was then gently reduced. Final fluoroscopic view showed adequate placement implant along with jainism of leg length. Stability was checked with 80 of external rotation and 60 of extension of the right hip. The wound was irrigated with sterile lavage. The fascia was closed with running 0 Vicryl suture. There was minimal drainage therefore a deep drain was not placed. The second dose of IV TXA was given. The subcutaneous tissues were reapproximated interrupted 2-0 Vicryl sutures. The skin was reapproximated with 3-0 subcuticular strata fix suture. Skin tape and adhesive was applied. A sterile dressing was applied. The patient was then awoken from sedation and transferred to recovery room in good condition. Blood loss was estimated at 200 mL. No complications were incurred. Sponge and needle counts were correct at the end of the case. Jose BLACK assisted during the major components is case to include exposure, bone resection, implantation, and closure.
[2018-04-25] MEDS ORDERED: diphenhydrAMINE 50 MG/ML 1 ML VIAL IVP ONE (09:50)
[2018-04-25] MEDS: HYDROmorphone 0.5 MG/0.5 ML SYRINGE IVP PRN ×3 (09:50→14:24)
[2018-04-25] MEDS ORDERED: HYDROmorphone 0.5 MG/0.5 ML SYRINGE IVP ONE (09:50)
--- NOTE | 2018-04-25 10:47 | XR ---
Limited left hip HISTORY: Status post left hip arthroplasty Single frontal view of the left hip No comparisons Patient is status post left hip arthroplasty. There is anatomic alignment. Lucency in the soft tissue s compatible with postop state. Bone mineralization is reduced. IMPRESSION: Orthopedic follow-up.
--- NOTE | 2018-04-25 12:59 | XR ---
Limited left hip HISTORY: Left hip arthroplasty Single intraoperative C-arm image documents the procedure.
--- NOTE | 2018-04-25 13:00 | FL ---
Fluoroscopy HISTORY: Left hip arthroplasty 32 seconds fluoroscopy time supplied to the referring clinician. 1 intraoperative C-arm images docum ent the procedure. See dictated report from orthopedic surgery.
[2018-04-25] MEDS: oxyCODONE ER 10 MG TAB.ER.12H PO SCH ×2 (13:54→16:49)
[2018-04-25] MEDS: RIVAROXABAN 10 MG TAB PO SCH (13:55)
--- NOTE | 2018-04-25 16:13 | P.CONS ---
History of Present Illness - Reason for Consult Recommendations regarding antihypertensive medications - History of Present Illness 62-year-old the admitted for left hip arthroplasty anterior approach. Patient the denied any pain did not pass gas yet patient is postoperative day 0 today. Patient denied any significant pain. Regarding her workup my medical issues patient I was told she has coronary artery disease had cardiac catheterization never received any stents patient used to be on Plavix which was switched to aspirin before the surgery and she was asked to continue aspirin through the surgery. Patient is presently started on anticoagulation for DVT prophylaxis post hip surgery. Patient denied any fever chills nausea vomiting patient blood pressure is within normal limits vitals are fairly stable. Patient is on KYAW inhibitor which will be temporally held to prevent perioperative hypotension. Review of Systems REVIEW OF SYSTEMS: CONSTITUTIONAL: No fever, no malaise, no fatigue. HEENT: No recent visual problems or hearing problems. Denied any sore throat. CARDIOVASCULAR: No chest pain, orthopnea, PND, no palpitations, no syncope. PULMONARY: No shortness of breath, no cough, no hemoptysis. GASTROINTESTINAL: No diarrhea, no nausea, no vomiting, no abdominal pain. NEUROLOGICAL: No headaches, no weakness, no numbness. HEMATOLOGICAL: Denies any bleeding or petechiae. GENITOURINARY: Denies any burning micturition, frequency, or urgency. MUSCULOSKELETAL/RHEUMATOLOGICAL: Denies any joint pain, swelling, or any muscle pain. ENDOCRINE: Denies any polyuria or polydipsia. The rest of the 14-point review of systems is negative. Past Medical History Past Medical History: Fibromyalgia, GERD/Reflux, Hyperlipidemia, Hypertension, Myocardial Infarction ([place]), Musculoskeletal Disorder, Osteoarthritis (OA), Pneumonia, Respiratory Disorder, Rheumatoid Arthritis (RA), Skin Disorder Additional Past Medical History / Comment(s): DDD, herniated, bulging discs. SHORT OF BREATH W/ ACTIVITY. VARICOSE VEINS. Last Myocardial Infarction Date:: 12/23/16 History of Any Multi-Drug Resistant Organisms: None Reported Past Surgical History: Orthopedic Surgery, Tonsillectomy, Tubal Ligation Additional Past Surgical History / Comment(s): RT & LT Arthroscopy Knees; RT Rotator Cuff Repair. Pain Procedures Past Anesthesia/Blood Transfusion Reactions: No Reported Reaction Past Psychological History: Anxiety, Depression Smoking Status: Never smoker Past Alcohol Use History: Rare Past Drug Use History: None Reported - Past Family History Mother Family Medical History: No Reported History Father Family Medical History: COPD Medications and Allergies Home Medications Medication Instructions Recorded Confirmed Type Omeprazole 20 mg PO BID 11/05/15 04/25/18 History Orencia(Unknown Dose) 1 dose IVPB Q30D 12/25/16 04/25/18 History oxyCODONE HCL 10 mg PO QID PRN 12/25/16 04/25/18 History Atorvastatin [Lipitor] 20 mg PO HS #30 tab 12/28/16 04/25/18 Rx Metoprolol Tartrate [Lopressor] 12.5 mg PO BID #30 tab 12/28/16 04/25/18 Rx Aspirin 81 mg PO DAILY 04/18/18 04/25/18 History Lisinopril [Zestril] 2.5 mg PO HS 04/18/18 04/25/18 History traZODone HCL 50 - 100 mg PO HS 04/18/18 04/25/18 History Pregabalin [Lyrica] 100 mg PO BID 04/25/18 04/25/18 History Allergies Allergy/AdvReac Type Severity Reaction Status Date / Time Penicillins Allergy Itching Verified 04/25/18 14:07 Physical Exam Vitals: Vital Signs Temp Pulse Pulse Resp BP Pulse Ox 04/25/18 15:00 97.9 F 95 16 96/61 95 04/25/18 13:14 97.4 F L 80 14 107/64 96 04/25/18 12:30 92 16 101/63 93 L 04/25/18 11:30 84 16 133/60 100 04/25/18 11:01 80 16 93/68 99 04/25/18 10:31 78 16 119/62 100 04/25/18 10:15 66 16 112/60 100 04/25/18 10:06 55 L 16 101/55 98 04/25/18 09:45 80 16 107/59 100 04/25/18 09:32 62 16 95/52 99 04/25/18 09:15 77 16 99/53 94 L 04/25/18 09:09 97.7 F 76 16 90/52 99 04/25/18 06:21 96.5 F L 63 16 123/60 99 Intake and Output 04/25/18 04/25/18 04/25/18 06:59 14:59 22:59 Intake Total 1000 761 Output Total 200 Balance 1000 561 Intake: IV 1000 701 Intake, IV Titration 60 Amount Lactated Ringers 1,000 ml 60 @ 60 mls/hr IV .[id number] [facility] Rx#:[id number] Output: Estimated Blood Loss 200 PHYSICAL EXAMINATION: GENERAL: The patient is alert and oriented x3, not in any acute distress. Well developed, well nourished. HEENT: Pupils are round and equally reacting to light. EOMI. No scleral icterus. No conjunctival pallor. Normocephalic, atraumatic. No pharyngeal erythema. No thyromegaly. CARDIOVASCULAR: S1 and S2 present. No murmurs, rubs, or gallops. PULMONARY: Chest is clear to auscultation, no wheezing or crackles. ABDOMEN: Soft, nontender, nondistended, normoactive bowel sounds. No palpable organomegaly. MUSCULOSKELETAL: Deferred to orthopedic surgery EXTREMITIES: No cyanosis, clubbing, or pedal edema. NEUROLOGICAL: Gross neurological examination did not reveal any focal deficits. SKIN: No rashes. Assessment and Plan Plan: -Left hip arthroplasty: Pain management and DVT prophylaxis as per primary service. -Coronary artery disease patient will be resumed on aspirin patient can be continued on baby aspirin along with low dose anticoagulation for DVT prophylaxis. -Hypertension: Patient is expected to have low blood pressure post surgery and in the perioperative period because of which I'll hold the lisinopril temporarily. -Fibromyalgia -Hyperlipidemia -Osteoarthritis primary multiple joints along with the decision to to lumbar spine disease. -Depression, chronic For above-mentioned chronic medical problems patient will be resumed on appropriate home medications medication reconciliation was done
[2018-04-25] MEDS: PANTOPRAZOLE 40 MG TABLET PO SCH (16:46)
[2018-04-25] MEDS: ceFAZolin IN SWFI 2 GM/20 ML SYRINGE IVP SCH (16:49)
[2018-04-25] MEDS ORDERED: HYDROcodone/APAP 7.5-325MG 1 EACH TAB PO PRN (18:03)
[2018-04-25] MEDS: METOPROLOL TARTRATE 12.5 MG TAB PO SCH (20:42)
[2018-04-25] MEDS: PREGABALIN 100 MG CAP PO SCH (20:42)
[2018-04-25] MEDS ORDERED: ATORVASTATIN 20 MG TAB PO SCH (21:00)
[2018-04-25] MEDS ORDERED: SENNOSIDES-DOCUSATE SODIUM 1 EACH TAB PO SCH (21:00)
[2018-04-26] MEDS: ceFAZolin IN SWFI 2 GM/20 ML SYRINGE IVP SCH (00:01)
[2018-04-26] MEDS: HYDROmorphone 0.5 MG/0.5 ML SYRINGE IVP PRN (00:17)
[2018-04-26 07:51] VITALS: PULSE 64; RESP 16
[2018-04-26 08:09] LABS: Basophils % (A) 0 %; Eosinophils % (A) 0 %; HCT 29.1 % (34.0-46.0); Lymphocytes % (A) 12 %; MCH 29.2 pg (25.0-35.0); MCHC 32.8 g/dL (31.0-37.0); Mean Platelet Volume 6.5; Monocytes # (A) 0.4 k/uL (0-1.0); Monocytes % (A) 4 %; Neutrophils # (A) 7.2 k/uL (1.3-7.7); Neutrophils % (A) 82 %; Platelet Count 211 k/uL (150-450); RBC 3.28 m/uL (3.80-5.40); RDW 14.5 % (11.5-15.5); WBC 8.8 k/uL (3.8-10.6)
[2018-04-26 08:21] LABS: HGB 9.6 gm/dL (11.4-16.0)
[2018-04-26] MEDS: LACTATED RINGERS 1,000 ML IV SCH (08:27)
[2018-04-26 08:38] VITALS: BP 86/46; TEMP 98.6
[2018-04-26] MEDS: RIVAROXABAN 10 MG TAB PO SCH (08:40)
[2018-04-26] MEDS: PREGABALIN 100 MG CAP PO SCH (08:40)
[2018-04-26] MEDS: PANTOPRAZOLE 40 MG TABLET PO SCH (08:40)
[2018-04-26] MEDS: METOPROLOL TARTRATE 12.5 MG TAB PO SCH (08:40)
[2018-04-26] MEDS ORDERED: ASPIRIN 81 MG PO SCH ×2 (09:00)
--- NOTE | 2018-04-26 12:02 | P.PN ---
Subjective patient is admitted for left hip arthrodesis successfully underwent surgery. Patient is being discharged today patient on lisinopril 2.5 mg a do not think it sensory patient does not appear to have essential hypertension. Patient is not diabetic doesn't have any congestive heart failure beta lorraine will discontinue patient blood pressure today is and 90 systolic.patient did move her bowels today Constitutional: Denied any fatigue denied any fever. Cardio vascular: denied any chest pain, palpitations Gastrointestinal denied any nausea vomiting Pulmonary: Denied any shortness of breath cough Neurologic denied any new focal deficits All inpatient medications were reviewed and appropriate changes in these medications as dictated in the interval history and assessment and plan. Objective - Vital Signs Vital signs: Vital Signs Temp 98.6 F 04/26/18 08:38 Pulse 64 04/26/18 07:00 Resp 16 04/26/18 08:46 BP 86/46 04/26/18 08:38 Pulse Ox 92 L 04/26/18 07:00 Intake & Output 04/25/18 04/26/18 04/26/18 18:59 06:59 18:59 Intake Total 1021 240 Output Total 200 Balance 821 240 Intake: IV 701 Intake, IV Titration 60 Amount Lactated Ringers 1,000 ml 60 @ 60 mls/hr IV .[id number] [facility] Rx#:[id number] Oral 260 240 Output: Estimated Blood Loss 200 Other: # Voids 1 - Exam PHYSICAL EXAMINATION: GENERAL: The patient is alert and oriented x3, not in any acute distress. Well developed, well nourished. HEENT: Pupils are round and equally reacting to light. EOMI. No scleral icterus. No conjunctival pallor. Normocephalic, atraumatic. No pharyngeal erythema. No thyromegaly. CARDIOVASCULAR: S1 and S2 present. No murmurs, rubs, or gallops. PULMONARY: Chest is clear to auscultation, no wheezing or crackles. ABDOMEN: Soft, nontender, nondistended, normoactive bowel sounds. No palpable organomegaly. MUSCULOSKELETAL: Deferred to orthopedic surgery EXTREMITIES: No cyanosis, clubbing, or pedal edema. NEUROLOGICAL: Gross neurological examination did not reveal any focal deficits. SKIN: No rashes. - Labs CBC & Chem 7: 04/26/18 06:51 Labs: Abnormal Lab Results - Last 24 Hours (Table) 04/26/18 Range/Units 06:51 RBC 3.28 L (3.80-5.40) m/uL Hgb 9.6 L D (11.4-16.0) gm/dL Hct 29.1 L (34.0-46.0) % Assessment and Plan Plan: -Left hip arthroplasty: Pain management and DVT prophylaxis as per primary service. -Coronary artery disease patient -Hypertension: -Fibromyalgia -Hyperlipidemia -Osteoarthritis primary multiple joints along with the decision to to lumbar spine disease. -Depression, chronic
--- NOTE | 2018-04-26 12:39 | P.PN ---
Subjective Progress Note Date: 04/26/18 Principal diagnosis: Status post left total hip arthroplasty Patient evaluated at bedside today, she was comfortably. Pain is well- controlled. Patient denies any fevers, chills, chest pain or shortness of breath. She has ambulated well with therapy. Objective - Vital Signs Vital signs: Vital Signs Temp 98.6 F 04/26/18 08:38 Pulse 64 04/26/18 07:00 Resp 16 04/26/18 08:46 BP 86/46 04/26/18 08:38 Pulse Ox 92 L 04/26/18 07:00 Intake & Output 04/25/18 04/26/18 04/26/18 18:59 06:59 18:59 Intake Total 1021 240 Output Total 200 Balance 821 240 Intake: IV 701 Intake, IV Titration 60 Amount Lactated Ringers 1,000 ml 60 @ 60 mls/hr IV .[id number] [facility] Rx#:[id number] Oral 260 240 Output: Estimated Blood Loss 200 Other: # Voids 1 - Exam Left lower extremity: Incision is clean, dry, and intact. The exofin fusion tape is in good condition. There is minimal soft tissue swelling and ecchymosis surrounding the medial and lateral aspects of the incision. Calf is soft, no tenderness with palpation. Plantar flexion, dorsiflexion, EHL, FHL are intact. Sensory exam to light touch throughout the extremity is intact, dorsal pedis pulses 2+. - Labs CBC & Chem 7: 04/26/18 06:51 Labs: Abnormal Lab Results - Last 24 Hours (Table) 04/26/18 Range/Units 06:51 RBC 3.28 L (3.80-5.40) m/uL Hgb 9.6 L D (11.4-16.0) gm/dL Hct 29.1 L (34.0-46.0) % Assessment and Plan Plan: Assessment: Postoperative day #1 status post direct anterior left total hip arthroplasty Plan: Discharged home on oral pain medication GI and DVT prophylaxis, Eliqui 2.5mg bid Wound care instructions were discussed Home therapy and nursing of discharge Plan discharge home today Time with Patient: Less than 30
--- NOTE | 2018-04-26 12:44 | P.DS ---
Providers Date of admission: 04/25/18 05:56 Expected date of discharge: 04/26/18 Attending physician: Jesus Ron Consults: 04/25/18 08:52 Consult Physician Routine Consulting Provider: Jenny Guzman Consult Reason/Comments: Medical Management Do you want consulting provider notified?: Yes Primary care physician: Megan Alvarado [facility] Course: Date of admission: 04/25/2018 Date of discharge: 04/26/2018 Admission diagnosis: Status post direct anterior left total hip arthroplasty Discharge diagnosis: Same Attending physician: Dr. Ron Surgical procedures: Direct anterior left total hip arthroplasty Brief history: Patient is a 62-year-old female with a history of progressive primary left hip osteoarthritis. At this point patient has failed conservative treatment measures and has opted to proceed with a elective a total hip arthroplasty direct anterior. Hospital course: Details of patient's surgery can be found in operative report. Patient tolerated the procedure well and was subsequently transported to orthopedic floor. Patient's orthopeidc and medical care was provided daily. Patient had daily laboratory tests performed for evaluation of overall blood counts. Patient had daily physical therapy to include strengthening range of motion as well as education with walker ambulation. Patient was treated with Xarelto for their postoperative DVT prophylaxis during their inpatient stay. Patient was noted to have a relatively uneventful postoperative course. Patient reported satisfactory pain control with oral pain medications by postoperative day 0. Patient showed satisfactory progress with physical therapy. Patient moved steadily through the program and had no difficulty meeting the goals by postoperative day 1. Given patient's otherwise satisfactory course and having met physical therapy goals, plan is to discharge patient home on postoperative day 1. Discharge condition/disposition: Patient will be discharged home in stable condition. Discharge medications: Instructions are given on resumption of patient's normal daily medications per primary care recommendation, in addition patient will be prescribed [place] 7.5 mg/325 mg, Zofran 4 mg, Eliquis 2.5mg. Discharge instructions: 1. Wound care and infection precautions, keep incision dry and covered while showering, no lotions, creams, moisturizers. No soaking, tubs, pools, hottubs. Do not scrub over the incision. 2. Weight-bear as tolerated with walker / cane until follow-up. 3. Ice and elevate when necessary. Do not exceed 20 minutes per hour with ice pack. 4. Utilize compression sleeve until seen at first follow up appointment. 5. Visiting nursing care. 6. Home physical therapy. 7. Pain meds and anticoagulants per prescription. 8. Pain medication has potential to cause constipation. Increase oral fluid and fiber intake. Contact primary care provider if you have not had a bowel movement within 48 hours after discharge 9. No anti-inflammatory medication until discussed at first post operative visit, this including Motrin, Aleve, Mobic, Diclofenac. 10. Follow up in office at 2 weeks postop with Jose Celestin PA-C 11. Follow up with your primary care doctor 7-10 days after discharge. 12. Contact [facility] with any questions, . Procedures: Left total hip arthroplasty direct anterior Patient Condition at Discharge: Good Plan - Discharge Summary Discharge Rx Participant: Yes New Discharge Prescriptions: New Apixaban [Eliquis] 2.5 mg PO BID #30 tab HYDROcodone/APAP 7.5-325MG [[place] 7.5] 1 each PO Q6HR PRN #56 tab PRN Reason: Pain Ondansetron HCl [Zofran] 4 mg PO DAILY PRN #20 tablet PRN Reason: Nausea Discontinued Lisinopril [Zestril] 2.5 mg PO HS No Action Omeprazole 20 mg PO BID oxyCODONE HCL 10 mg PO QID PRN PRN Reason: Pain Orencia(Unknown Dose) 1 dose IVPB Q30D Atorvastatin [Lipitor] 20 mg PO HS #30 tab Metoprolol Tartrate [Lopressor] 12.5 mg PO BID #30 tab traZODone HCL 50 - 100 mg PO HS Aspirin 81 mg PO DAILY Pregabalin [Lyrica] 100 mg PO BID Discharge Medication List Omeprazole 20 mg PO BID 11/05/15 [History] Orencia(Unknown Dose) 1 dose IVPB Q30D 12/25/16 [History] oxyCODONE HCL 10 mg PO QID PRN 12/25/16 [History] Atorvastatin [Lipitor] 20 mg PO HS #30 tab 12/28/16 [Rx] Metoprolol Tartrate [Lopressor] 12.5 mg PO BID #30 tab 12/28/16 [Rx] Aspirin 81 mg PO DAILY 04/18/18 [History] traZODone HCL 50 - 100 mg PO HS 04/18/18 [History] Pregabalin [Lyrica] 100 mg PO BID 04/25/18 [History] Apixaban [Eliquis] 2.5 mg PO BID #30 tab 04/26/18 [Rx] HYDROcodone/APAP 7.5-325MG [[place] 7.5] 1 each PO Q6HR PRN #56 tab 04/26/18 [Rx] Ondansetron HCl [Zofran] 4 mg PO DAILY PRN #20 tablet 04/26/18 [Rx] Follow up Appointment(s)/Referral(s): Jenny Guzman MD [Primary Care Provider] - 05/02/18 1:00 pm [facility], [NON-STAFF] - As Needed Salomon Celestin PAC [PHYSICIAN MULTIPLE SLIDE OPERATOR] - 05/10/18 3:20 pm Patient Instructions/Handouts: Anterior Hip Replacement (DC) Activity/Diet/Wound Care/Special Instructions: Orthopedic Discharge Instructions: 1. Wound care and infection precautions, keep incision dry and covered while showering, no lotions, creams, moisturizers. No soaking, pools, hot tubs. Do not scrub over incision. 2. Weight-bear as tolerated with walker / cane until follow-up. 3. Ice and elevate when necessary. Do not exceed 20 minutes per hour with ice pack. 4. Utilize compression sleeve until seen at first follow up appointment. 5. Pain meds and anticoagulants per prescription. 6. Pain medication has potential to cause constipation. Increase oral fluid and fiber intake. Contact primary care provider if you have not had a bowel movement within 48 hours after discharge. 7. No anti-inflammatory medication until discussed at first post operative visit, this including Motrin, Aleve, Mobic, Diclofenac. 8. Follow up in office at 2 weeks postop with Jose Celestin PA-C 9. Follow up with your primary care doctor 7-10 days after discharge. 10. Contact [facility] with any questions, . Discharge Disposition: HOME WITH HOME HEALTH SERVICES
== END 2018-04-26 13:35 | disposition home health service (06) | DRG 470 ==
LOC: 2ORMAIN 05:56 → 4SSUR 12:48
PROVIDERS: ADMIT Orthopaedic Surgery; ATTEND Orthopaedic Surgery
PROC: 0SRB02A Replacement of Left Hip Joint with Metal on Polyethylene Synthetic Substitute, Uncemented, Open Approach (ICD-10-PCS; principal; 2018-04-25 07:00)
DX: M16.12 Unilateral primary osteoarthritis, left hip (principal); M87.152 Osteonecrosis due to drugs, left femur; E78.5 Hyperlipidemia, unspecified; I10 Essential (primary) hypertension; I25.10 Atherosclerotic heart disease of native coronary artery without angina pectoris; K21.9 Gastro-esophageal reflux disease without esophagitis; M06.9 Rheumatoid arthritis, unspecified; M79.7 Fibromyalgia; T38.0X5A Adverse effect of glucocorticoids and synthetic analogues, initial encounter; Z79.52 Long term (current) use of systemic steroids; I25.2 Old myocardial infarction; Z79.82 Long term (current) use of aspirin; Z79.899 Other long term (current) drug therapy; Z82.5 Family history of asthma and other chronic lower respiratory diseases
CPT/HCPCS: 36415; 73501; 85025; 86850; 86891; 86900; 86901; 88300

== ENCOUNTER → 2018-06-27 | Outpatient (CLI) | payer MEDICARE, OTHER ==
[~2018-06-27] MED LIST changes: +ABATACEPT/MALTOSE 750 MG in SODIUM CHLORIDE 0.9% 70 ML IVPB ONE; -ACETAMINOPHEN TAB 500 MG TAB PO ONE; -MELOXICAM 7.5 MG TAB PO ONE; +SODIUM CHLORIDE 0.9% 500 ML 500 ML in EMPTY BAG 1 BAG IV PRN; -TRANEXAMIC ACID 1,000 MG in SODIUM CHLORIDE 0.9% 50 ML IVPB ONE; -ceFAZolin IN SWFI 2 GM/20 ML SYRINGE IVP ONE
[2018-06-27 13:01] VITALS: BP 132/62; PULSE 67; RESP 16; TEMP 97.4
== END ==
LOC: PROCWHC3 12:40
PROVIDERS: ATTEND Physician Assistant Medical
DX: M06.89 Other specified rheumatoid arthritis, multiple sites (principal)
CPT/HCPCS: 96365; J0129

== ENCOUNTER → 2018-11-09 | Outpatient (CLI) | payer MEDICARE | END | disposition home or self-care (01) | LOC: LABWHC1 09:30 | PROVIDERS: ATTEND Internal Medicine Cardiovascular Disease | DX: E78.2 Mixed hyperlipidemia (principal) | CPT/HCPCS: 36415; 80061; 84450; 84460 ==

== ENCOUNTER → 2023-05-20 | Outpatient (CLI) | payer MEDICARE ==
[2023-05-20 18:56] LABS: Basophils # (A) 0.08 X 10*3/uL (0.00-0.10); Basophils % (A) 1.1 %; Eosinophils # (A) 0.19 X 10*3/uL (0.04-0.35); Eosinophils % (A) 2.5 %; HCT 40.7 % (37.2-46.3); Lymphocytes % (A) 23.8 %; MCH 28.9 pg (27.0-32.0); MCHC 31.9 g/dL (32.0-37.0); MCV 90.4 FL (80.0-97.0); Mean Platelet Volume 8.9 FL (9.5-12.2); Monocytes # (A) 0.56 X 10*3/uL (0.20-1.00); Monocytes % (A) 7.4 %; NRBC Per 100 WBC 0 X 10*3/uL (0.00-0.01); Neutrophils # (A) 4.79 X 10*3/uL (1.80-7.70); Neutrophils % (A) 63.5 %; Platelet Count 269 X 10*3/uL (140-440); RDW 16.4 % (11.5-14.5); WBC 7.55 X 10*3/uL (4.50-10.00)
[2023-05-20 20:06] LABS: BUN/Creat Ratio 16.73 Ratio (12.00-20.00); Blood Urea Nitrogen 18.4 mg/dL (9.0-27.0); Calcium 8.8 mg/dL (8.7-10.3); Carbon Dioxide 25.5 mmol/L (21.6-31.8); Chloride 105 mmol/L (96-109); Glucose 78 mg/dL (70-110); Potassium 4.9 mmol/L (3.5-5.5); Sodium 141 mmol/L (135-145)
== END | disposition home or self-care (01) ==
LOC: LABWHC1 11:40
PROVIDERS: ATTEND Orthopaedic Surgery
DX: Z01.812 Encounter for preprocedural laboratory examination (principal); M75.42 Impingement syndrome of left shoulder
CPT/HCPCS: 36415; 80048; 85025

== ENCOUNTER 2023-06-24 05:37 | Day surgery (SDC) | payer MEDICARE ==
--- NOTE | 2023-06-23 08:20 | P.HPOR ---
History of Present Illness H&P Date: 06/23/23 Chief Complaint: Left shoulder pain The patient is a 67-year-old [id number] female who presents with left shoulder pain after an injury 03/15/2023. She tripped and fell landing on her left shoulder. She notes persistent anterior pain ever since. She have a difficult time with any overhead activity and at night. She denies previous problems with the left shoulder. Review of Systems As per HPI Past Medical History Past Medical History: Fibromyalgia, GERD/Reflux, Myocardial Infarction ([place]), Musculoskeletal Disorder, Osteoarthritis ([place]), Pneumonia, Rheumatoid Arthritis ([place]), Skin Disorder, Vascular Disorder Additional Past Medical History / Comment(s): DDD, herniated, bulging discs. . VARICOSE VEINS. sjogrens Last Myocardial Infarction Date:: 12/23/16 History of Any Multi-Drug Resistant Organisms: None Reported Past Surgical History: Orthopedic Surgery, Tonsillectomy, Tubal Ligation Additional Past Surgical History / Comment(s): RT & LT Arthroscopy Knees; RT Rotator Cuff Repair. Pain Procedures Past Anesthesia/Blood Transfusion Reactions: No Reported Reaction Smoking Status: Never smoker - Past Family History Mother Family Medical History: No Reported History Father Family Medical History: COPD Medications and Allergies Home Medications Medication Instructions Recorded Confirmed Type Omeprazole 20 mg PO BID 11/05/15 06/21/23 History oxyCODONE HCL [oxyCODONE HCL (IR)] 10 mg PO QID PRN 12/25/16 06/21/23 History traZODone HCL 150 mg PO HS PRN 06/21/23 06/21/23 History Allergies Allergy/AdvReac Type Severity Reaction Status Date / Time Penicillins Allergy Itching Verified 06/21/23 12:09 Physical Examination - Shoulder left Tenderness with palpation: anterior, bicipital groove Pain: with abduction, with forward flexion ROM: forward flexion: 80 degrees ROM: internal rotation: lower lumbar ROM: external rotation: 30 degrees Crepitus with motion: Yes Strength: external rotation: 4/5 Tests: internal impingement tests: positive, external impingment tests: positive Results The patient is a well-developed well-nourished female approximately 5 foot 4, 170 pounds of mesomorphic habitus. HEENT exam is nonfocal, neck is supple. She has moderate subacromial tenderness on the left. Moderate subacromial crepitus is noted. Active forward elevation is 80, passive is 150. Motor strength 5 - / 5 for external rotation 4+/ 5 for abduction. Shepherd, impingement test, and speed test are positive. Her distal neurovascular appears intact in the left upper extremity. - Diagnostic results Shoulder MRI: image reviewed (MRI of the left shoulder shows significant edema involving the greater tuberosity along with an anterior supraspinatus tear.) Assessment and Plan Assessment: Acute left rotator cuff tear Plan: I talked to the patient at length regarding her condition along with treatment options. At this point she is quite symptomatic after this acute injury. After a thorough discussion she opts to proceed with surgery. We'll proceed with arthroscopic evaluation of her left shoulder with probable subacromial decompression, and possible rotator cuff repair. We will likely perform that as an outpatient procedure. Risks and benefits were discussed at length in layman's terms.
[2023-06-24] MEDS ORDERED: LIDOCAINE 1% (10MG/ML) FOR IV START INTRADERMA PRN (05:45)
[2023-06-24] MEDS ORDERED: HYDROmorphone 0.5 MG/0.5 ML SYRINGE IVP PRN (05:45)
[2023-06-24] MEDS: LACTATED RINGERS 1,000 ML IV SCH (06:27)
[2023-06-24] MEDS: ONDANSETRON 4 MG/2 ML VIAL IVP ONE (06:50)
[2023-06-24] MEDS: DEXAMETHASONE SOD PHOSPHATE 4 MG/ML 1 ML VIAL IV ONE (06:50)
[2023-06-24] MEDS: MIDAZOLAM 2 MG/2 ML VIAL IV PRN (07:01)
[2023-06-24] MEDS ORDERED: PHENYLEPHRINE-0.9% NACL SYG 1,000 MCG/10 ML SYRINGE ONE (07:55)
[2023-06-24] MEDS ORDERED: SUCCINYLCHOLINE CHLORIDE 200 MG/10 ML VIAL IV ONE (07:55)
[2023-06-24] MEDS ORDERED: MIDAZOLAM 2 MG/2 ML VIAL ONE (07:55)
[2023-06-24] MEDS ORDERED: DEXAMETHASONE SOD PHOSPHATE 4 MG/ML 1 ML VIAL ONE (07:55)
[2023-06-24] MEDS ORDERED: ROPIVACAINE 5 MG/ML 30 ML VIAL ONE (07:55)
[2023-06-24] MEDS ORDERED: fentaNYL (PF) 50 MCG/ML 2 ML AMP ONE (07:55)
[2023-06-24] MEDS ORDERED: PROPOFOL 10 MG/ML 20 ML VIAL IV ONE (07:55)
[2023-06-24] MEDS ORDERED: LIDOCAINE 1% INJ 10MG/ML (20 ML MDV) ONE (07:55)
[2023-06-24] MEDS: EPINEPHrine (PF) 1 ML in SODIUM CHLORIDE 0.9% IRRIGATIO 3,000 ML IRRIGATION ONE ×4 (07:59)
[2023-06-24] MEDS: LACTATED RINGERS 1,000 ML IV ONE ×2 (08:50→08:51)
--- NOTE | 2023-06-24 09:45 | P.OP ---
Date of Procedure: 06/24/23 Preoperative Diagnosis: Left rotator cuff tear Postoperative Diagnosis: 3 cm left rotator cuff tear, high-grade partial-thickness tear intra-articular portion long head of the biceps Procedure(s) Performed: Left shoulder arthroscopic subacromial decompression/biceps tenodesis/rotator cuff repair Implants: Arthrex 4.5 mm swivel lock anchor 3, 5.5 mm swivel lock anchor 2 Anesthesia: PATELA, regional Surgeon: Jesus Ron Overlock Collar Setter #1: Feliz Andrade Estimated Blood Loss (ml): 10 Pathology: none sent Condition: stable Disposition: PACU Indications for Procedure: The patient's a 67-year-old female who presents with persistent/progressive left shoulder pain despite conservative measures. A discussion of the risks and benefits of operative intervention versus continued conservative measures was made with the patient. She opted to proceed with surgery. Operative risks to include infection, neurovascular injury, development of blood clots, possible tendon rerupture, possible postoperative stiffness, and possible need for subsequent procedures was discussed. Informed consent was obtained. Operative Findings: As below Description of Procedure: The patient was brought to the operating room, and after induction of general anesthesia was placed in a beachchair position. A preoperative interscalene block was placed for postoperative analgesia. I examined the left shoulder. There was no gross block to passive motion or gross glenohumeral instability. The left upper extremity was prepped and draped in normal fashion. The bony outlines the acromion, distal clavicle, and coracoid process were outlined with a skin marker. The glenohumeral joint was inflated with 50 mL of saline utilizing a spinal needle from posterior approach. A posterior portal was made through a 5 mm skin incision 1 cm medial and inferior to the posterior lateral border time. A blunt trocar was used to easily into the joint. Diagnostic arthroscopy was performed. An anterior portal was made just lateral to the coracoid process entering the joint above the subscapularis tendon. The subscapularis tendon appeared to be intact. Anterior labrum was intact. The inferior recess was inspected. The posterior labrum was intact. There was a high-grade partial-thickness tear of the long head of the biceps involving interarticular portion. It was elected to proceed with tenodesis at this point. This was then captured with a loop intact technique and released from the superior labrum. This was tenodesed to the upper portion of the bicipital groove with a 4.75 mm swivel lock anchor. On inspection the rotator cuff, a full-thickness tear involving the supraspinatus and a portion the infraspinatus was noted.. The arthroscope was then placed into the subacromial space. A lateral portal was made 2 centimeters inferior to the anterior lateral border of the acromion. The rotator cuff was then mobilized with a traction suture. This was then easily brought back to the greater tuberosity. The soft tissue on the undersurface of the acromion was debrided with a motorized shaver and electrocautery clearly defining the anterior medial and lateral borders as well as the distal clavicle. An anterior inferior acromioplasty was performed with a motorized leroy starting anterolateral, then extending this posteriorly, then extending this medially. I converted to a flat acromion and this was verified in the posterior and lateral viewing portals. The greater tuberosity was lightly decorticating with a shaver down to a bleeding bony surface. An accessory superior lateral portals made just off the lateral edge of the acromion for anchor placement. 2 anchors were then placed just off the articular surface with the appropriate starting awl. 4.75 mm anchors preloaded with #2 fiber tape were placed. Good purchase was obtained. These fiber tapes were then passed the rotator cuff with a scorpion suture passer. A lateral row was created crisscrossing these tapes. 5.5 mm swivel lock anchors x2 were placed laterally. Good purchase was obtained. Final arthroscopic view showed adequate compression at the footprint. The arthroscope was then removed. The portals were closed with simple 3-0 nylon sutures. A sterile dressing was applied in addition to an abductor brace. The patient was then awoken from general anesthesia and transferred to recovery room in good condition. Blood loss was estimated at 10 mL. No complications were incurred. Sponge and needle counts were correct in the case. Feliz BLACK assisted and the major components of the case to include arm positioning, anchor placement, and rotator cuff repair.
[2023-06-24 10:08] VITALS: TEMP 97
[2023-06-24 11:56] VITALS: BP 123/61; PULSE 73; RESP 18
--- NOTE | 2023-06-26 19:11 | P.ANPRN ---
Procedure Note - Anesthesia - Nerve Block Performed Left Interscalene Single Time Out Performed: Yes Date of Procedure: 06/24/23 Procedure Start Time: : Procedure Stop Time: :07 Location of Patient: PreOp Indication: Acute Post-Operative Pain, Requested by Surgeon Sedation Type: Sedate with meaningful contact maintained Preparation: Sterile Prep Position: Supine Needle Types: Pajunk Needle Gauge: 21 Ultrasound used to visualize needle placement: Yes Ultrasound used to observe medication spread: Yes Blood Aspirated: No Pain Paresthesia on Injection Noted: No Resistance on Injection: Normal Image Stored and Saved: Yes Events: Uneventful and Well Tolerated (Ropivacaine 0.5% 20 cc blood dexamethasone 4 mg)
== END 2023-06-24 11:43 | disposition home or self-care (01) ==
LOC: OR 05:37
PROVIDERS: ATTEND Orthopaedic Surgery
DX: S46.012A Strain of muscle(s) and tendon(s) of the rotator cuff of left shoulder, initial encounter (principal); G89.18 Other acute postprocedural pain; M79.7 Fibromyalgia; M06.9 Rheumatoid arthritis, unspecified; M19.90 Unspecified osteoarthritis, unspecified site; Z88.0 Allergy status to penicillin; Z79.899 Other long term (current) drug therapy; W01.0XXA Fall on same level from slipping, tripping and stumbling without subsequent striking against object, initial encounter
CPT/HCPCS: 64415; 29826; 29827; 29828; C1713 ×3; C1894; J2250; J0330; J1100; J0690; J2405; J0171; J2001; J3010; J2795; J2704; J2371

== ENCOUNTER → 2024-07-24 | Outpatient (CLI) | payer MEDICARE ==
--- NOTE | 2024-07-24 13:19 | XR ---
EXAMINATION TYPE: XR chest 2V DATE OF EXAM: 07/24/2024 1:02 PM COMPARISON: Chest radiographs from 04/27/2018 TECHNIQUE: XR chest 2V Frontal and lateral views of the chest. CLINICAL INDICATION:Female, 68 years old with history of DRY COUGH 05.8; FINDINGS: Lungs/Pleura: There is no evidence of pleural effusion, focal consolidation, or pneumothorax. Pulmonary vascularity: Unremarkable. Heart/mediastinum: Cardiomediastinal silhouette is unremarkable. Musculoskeletal: No acute osseous pathology. IMPRESSION: No acute cardiopulmonary disease/process. [facility], , 07/24/2024 1:16 PM
== END | disposition home or self-care (01) ==
LOC: RADXRMAIN 12:45
PROVIDERS: ATTEND Internal Medicine
DX: R05.8 Other specified cough (principal)
CPT/HCPCS: 71046

== ENCOUNTER → 2024-09-10 | Outpatient (CLI) | payer MEDICARE ==
--- NOTE | 2024-09-10 15:30 | MM ---
Reason for Exam: Screening (asymptomatic). Patient History: Menarche at age 10. First Full-Term at age 21. Postmenopausal. Risk Values: Jaye 5 year model risk: 1.5%. NCI Lifetime model risk: 4.5%. Prior Study Comparison: No prior studies available for comparison. Tissue Density: There are scattered areas of fibroglandular density. Findings: Analyzed By CAD. There are a few tiny benign-appearing round calcifications scattered throughout the bilateral breasts. Benign appearing bilateral axillary lymph nodes are seen. There is no suspicious group of microcalcifications or suspicious mass in either breast. Overall Assessment: Benign, BI-RAD 2 Management: Screening Mammogram of both breasts in 1 year. . Patient should continue monthly self-breast exams. A clinical breast exam by your physician is recommended on an annual basis. This exam should not preclude additional follow-up of suspicious palpable abnormalities. Note on Jaye scores and lifetime risk: 1. A Jaye score greater than 3% is considered moderate risk. If this is the case, consider specialist referral to assess eligibility for a risk reducing agent. 2. If overall lifetime risk for the development of breast cancer is 20% or higher, the patient may qualify for future screening with alternating mammogram and breast MRI. [facility], , 09/10/2024 3:27 PM. Electronically signed and approved by: Guanako Sweet M.D.
--- NOTE | 2024-09-11 06:31 | BD ---
EXAMINATION TYPE: Axial Bone Density DATE OF EXAM: 09/10/2024 CLINICAL HISTORY: 68 years old Female. ICD-10 CODE: M06.9 RHEUMATOID ARTHRITIS , Additional History: Height: 62.2 in Weight: 165 lbs FRAX RISK QUESTIONS: Secondary Osteoporosis: Rheumatoid Arthritis: yes RISK FACTORS HISTORY OF: Surgery to Hip(left): replacement 2020 MEDICATIONS: EXAM MEASUREMENTS: Bone mineral densitometry was performed using the [employer] System. Bone mineral density as measured about the Lumbar spine is: ----- L1-L4(G/cm2): 1.052 T Score Values are as follows: ----- L1: -1.8 ----- L2: -0.9 ----- L3: -0.6 ----- L4: -1.3 ----- L1-L4: -1.1 Z Score Values are as follows: ----- L1: -0.5 ----- L2: 0.5 ----- L3: 0.8 ----- L4: 0.1 ----- L1-L4: 0.3 Bone mineral density baseline Bone mineral density about the R hip (g/cm2): 0.632 T Score values are as follows: -----R Neck: -3.3 -----R Total: -3.0 Z Score values are as follows: -----R Neck: -1.8 -----R Total: -1.7 Bone mineral density baseline FRAX%s: The graph provided illustrates a 27.9% chance for a major osteoporotic fx and a 11.7% chance for the hips probability for fx in 10 years time. IMPRESSION: Osteoporosis (T Score less than -2.5). There is increased fracture risk and therapy is usually indicated based on age. Re-Screen 1-2 years. NOTE: T-SCORE=SD OF THE YOUNG ADULT MEAN. [facility], , 09/11/2024 6:29 AM
== END | disposition home or self-care (01) ==
LOC: RADMAMWWP 14:35
PROVIDERS: ATTEND Internal Medicine
DX: Z12.31 Encounter for screening mammogram for malignant neoplasm of breast (principal); R92.323 Mammographic fibroglandular density, bilateral breasts; M81.0 Age-related osteoporosis without current pathological fracture; M85.88 Other specified disorders of bone density and structure, other site; Z78.0 Asymptomatic menopausal state
CPT/HCPCS: 77063; 77067; 77080

== ENCOUNTER 2024-10-31 12:54 | Day surgery (SDC) | payer MEDICARE ==
[2024-10-30 12:30] VITALS: BMI 28.3
[~2024-10-31 12:54] MED LIST changes: -ABATACEPT/MALTOSE 750 MG in SODIUM CHLORIDE 0.9% 70 ML IVPB ONE; +LIDOCAINE 1% (10MG/ML) FOR IV START INTRADERMA PRN; -SODIUM CHLORIDE 0.9% 500 ML 500 ML in EMPTY BAG 1 BAG IV PRN
[2024-10-31] MEDS: IV FLUID CONTINUATION 1,000 ML IV ONE ×2 (14:25→14:55)
[2024-10-31 14:28] VITALS: TEMP 97
[2024-10-31] MEDS: LACTATED RINGERS 1,000 ML IV SCH (14:34)
[2024-10-31] MEDS ORDERED: PROPOFOL 10 MG/ML 20 ML VIAL IV ONE (14:56)
[2024-10-31] MEDS ORDERED: LIDOCAINE 1% INJ 10MG/ML (20 ML MDV) ONE (14:56)
--- NOTE | 2024-10-31 15:14 | P.PCN ---
Date of Procedure: 10/31/24 Procedure(s) Performed: BRIEF HISTORY: Patient is a 68-year-old, pleasant, white female scheduled up anoscopy as a part of evaluation of intermittent dysphagia to solids for the last 4 years duration. She complains of dryness in the mouth.. PROCEDURE PERFORMED: Esophagogastroduodenoscopy. PREOPERATIVE DIAGNOSIS: Intermittent dysphagia to solids. IV sedation per anesthesia. PROCEDURE: After informed consent was obtained, the patient was brought into the endoscopy unit. IV conscious sedation was administered by Anesthesia under continuous monitoring. Initially the Olympus GIF-140 video endoscope was inserted into the mouth. Esophagus intubated without any difficulty. It was gradually advanced into the stomach and duodenum and carefully examined. The bulb and the second part of the duodenum appeared normal. The scope at this time was withdrawn to the stomach, adequately insufflated with air, and upon careful examination, mucosa of the antrum, body, cardia and the fundus appeared normal. The scope was then withdrawn into the esophagus. Small hiatal hernia noted. The GE junction was located at 39 cm from the incisors. The esophagus appeared normal. There were no erosions or ulcerations seen multiple biopsies were done from the mid and distal esophagus rule out eosinophilic esophagitis and the patient tolerated the procedure well. IMPRESSION: 1. Normal-appearing esophagus with no evidence of esophagitis or esophageal stricture or esophagitis.. 2. Small hiatal hernia. RECOMMENDATIONS: The findings of this examination were discussed with the patient as well as her family. She was advised to follow-up with the biopsy results. Her symptoms likely are as result of dryness in her mouth and I suggested that she be investigated further..
[2024-10-31 15:25] VITALS: RESP 16
[2024-10-31 15:31] VITALS: BP 124/62; PULSE 78
== END 2024-10-31 15:48 ==
LOC: ORWHC2ENDO 12:54
PROVIDERS: ATTEND Internal Medicine Gastroenterology
DX: K44.9 Diaphragmatic hernia without obstruction or gangrene (principal); K21.9 Gastro-esophageal reflux disease without esophagitis; I25.2 Old myocardial infarction; E78.5 Hyperlipidemia, unspecified; M06.9 Rheumatoid arthritis, unspecified; I10 Essential (primary) hypertension; F41.9 Anxiety disorder, unspecified; F32.A Depression, unspecified; M54.50 Low back pain, unspecified; Z88.0 Allergy status to penicillin; Z79.899 Other long term (current) drug therapy
CPT/HCPCS: 88305; 43239; J2003; J2704